=== PATIENT | female | born 1985 | race Caucasian/White ===

== ENCOUNTER 2020-11-18 08:09 | Emergency (ER) | payer OTHER, SELFPAY ==
[2020-11-18 08:14] VITALS: BP 120/67; PULSE 87; RESP 20; TEMP 36.9; O2SAT 100
--- NOTE | 2020-11-18 08:40 | ED.GENADULT ---
HPI - General Adult General Chief complaint: Eye Problems Stated complaint: scratched eye with mascara brush Source: patient Mode of arrival: ambulatory Limitations: no limitations History of Present Illness HPI narrative: Patient presents for evaluation of right eye irritation since yesterday. She indicates that she scratched her eye with a mascara brush unintentionally. Yesterday she had some mild irritation but woke from sleep this morning with worsening symptoms. She reports some blurred vision, sensation of sand in the eye , redness, and tearing. Denies any black spots, diplopia, or halos. Denies any purulent discharge from the right eye. History of Lasik surgery in the past. She has glasses at home but does not typically wear them. No additional complaints or concerns. Related Data Home Medications Medication Instructions Recorded Confirmed alprazolam [Xanax] 0.25 mg PO BID PRN 11/18/20 11/18/20 famotidine 40 mg PO DAILY 11/18/20 11/18/20 montelukast 10 mg PO DAILY 11/18/20 11/18/20 Allergies Allergy/AdvReac Type Severity Reaction Status Date / Time neomycin Allergy Intermediate redness, Verified 11/18/20 08:33 swelling and pain codeine Allergy Unknown N/V SEVERE Verified 11/18/20 08:33 Review of Systems Review of Systems: CONSTITUTIONAL: Denies fever, chills, or sweats. EYES: Reports right eye irritation, tearing, redness, blurred vision. ENT: Denies rhinorrhea, congestion, sore throat, or otalgia. CARDIOVASCULAR: Denies chest pain, palpitations, or edema. RESPIRATORY: Denies cough or dyspnea. GASTROINTESTINAL: Denies abdominal pain, nausea, vomiting, or diarrhea. GENITOURINARY: Denies dysuria or hematuria. SKIN: Denies rash or itching. MUSCULOSKELETAL: Denies back pain, joint pain, or myalgia. NEUROLOGIC: Denies headache, numbness, dizziness, or weakness. PSYCHIATRIC: Denies anxiety or depression. 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 HEAD: Normocephalic, atraumatic. EYES: PERRLA and EOMI. Right conjunctival injection with associated tearing. There is a small area of dye uptake to the right eye overlying the pupil when evaluated with Liang lamp and fluorescein staining ENT: Nares clear, no rhinorrhea or epistaxis. Mucous membranes moist. Oropharynx without tonsillar hypertrophy exudate or other lesions. Bilateral TMs pearly rasmussen nonbulging NECK: Supple. No adenopathy or masses. No carotid bruits or JVD CHEST: Clear to auscultation. No respiratory distress. No wheezes rales or rhonchi HEART: Regular rate and rhythm. No murmur heard. Normal peripheral pulses. ABDOMEN: Soft, nontender, nondistended, normal active bowel sounds. EXTREMITIES: Normal range of motion. No edema. SKIN: Warm, dry, no rash. NEURO: No focal deficits. Alert and oriented x3. PSYCH: Normal mood and affect. Course Course Emergency Course: This is a 35-year-old female who presented with right eye irritation after she scratched her eye with a mascara brush yesterday. Physical exam reveals small corneal abrasion. We will discharge her with a prescription for eryth
--- NOTE | 2020-11-18 09:21 | PC.NURSE ---
noted pt states certain no allergy to neomycin as previously recorded
== END 2020-11-18 08:55 | disposition home or self-care (01) ==
PROVIDERS: Emergency Provider Nurse Practitioner; PCP Physician Assistant
DX: S05.01XA Injury of conjunctiva and corneal abrasion without foreign body, right eye, initial encounter (principal); W22.8XXA Striking against or struck by other objects, initial encounter
CPT/HCPCS: 99203; A9270; G0463

== ENCOUNTER 2021-11-04 08:05 | Outpatient (CLI) | payer OTHER, SELFPAY ==
[2021-11-04 08:22] LABS: Basophils Absolute Auto 0.04 K/mm3 (0.00-0.10); Basophils Percent Auto 0.6 % (0.0-1.0); Eosinophils Absolute Auto 0.21 K/mm3 (0.02-0.50); Eosinophils Percent Auto 3.2 % (1.0-6.0); Hematocrit 38.9 % (35.0-49.0); Hemoglobin 12.7 g/dL (12.0-15.0); Immature Granulocyte Absolute 0.02 K/mm3 (0.00-0.00); Immature Granulocyte Percent A 0.3 % (0.0-0.0); Lymphocytes Absolute Auto 2.41 K/mm3 (1.10-4.50); Lymphocytes Percent Auto 37.2 % (18.0-42.0); Mean Corpuscular HGB Conc 32.6 g/dL (32.0-36.0); Mean Corpuscular Hemoglobin 28.2 pg (27.0-31.0); Mean Corpuscular Volume 86.4 fL (78.0-102.0); Mean Platelet Volume 11.3 fl (9.2-11.8); Monocytes Absolute Auto 0.42 K/mm3 (0.10-0.90); Monocytes Percent Auto 6.5 % (2.0-11.0); Neutrophils Absolute Auto 3.4 K/mm3 (1.7-7.2); Neutrophils Percent Auto 52.2 % (50.0-70.0); Platelet Count Result 283 K/mm3 (150-420); Red Cell Distribution Width 12.7 % (11.6-14.4); White Blood Count 6.5 K/mm3 (4.8-10.8)
[2021-11-04 08:23] LABS: Add Urine Microscopic? NO; Appearance Urine Clear (Clear); Bilirubin Urine Negative (Negative); Blood Urine Negative (Negative); Color Urine Light Yellow (Yellow); Glucose Urine UA Negative (Negative); Ketones Urine Negative (Negative); Leukocyte Esterase Ur Negative LEU/UL (Negative); Nitrate Urine Negative (Negative); Protein Urine Negative (Negative); Specific Grav Ur >= 1.030 (1.010-1.020); Urobilinogen Urine 0.2 mg/dL (0.2-1.0); pH Urine 5.5 (5.0-8.0)
[2021-11-04 08:40] LABS: Hemoglobin A1C 5.6 % (<5.7)
[2021-11-04 08:56] LABS: Alanine Aminotransferase 20 U/L (14-59); Alkaline Phosphatase 42 U/L (46-116); Anion Gap 9 mmol/L (8-16); Aspartate Amino Transferase 17 U/L (15-37); Bilirubin,Total 0.5 mg/dL (0.00-1.00); Blood Urea Nitrogen 11 mg/dL (7-18); Calcium 8.9 mg/dL (8.5-10.1); Carbon Dioxide 25 mmol/L (21-32); Chloride 103 mmol/L (98-108); Cholesterol 177 mg/dL (0-200); Estimated Glomerular Filt Rate > 60; Free T4 Free Thyroxine 0.92 ng/dL (0.76-1.46); Glucose 97 mg/dL (70-99); HDL Direct 67 mg/dL (40-60); LDL Cholesterol Calculated 99 mg/dL (<130); Osmolality Calculated 283 mOsm/kg (285-295); Potassium 4.1 mmol/L (3.5-5.1); Sodium 137 mmol/L (136-145); Thyroid Stimulating Hormone 1.52 uIU/mL (0.36-3.74); Total Protein 7.4 g/dL (6.4-8.2); Triglycerides 55 mg/dL (0-150)
== END 2021-11-04 08:06 | disposition home or self-care (01) ==
PROVIDERS: PCP Physician Assistant; Visit Provider Physician Assistant
DX: Z13.220 Encounter for screening for lipoid disorders (principal); Z13.1 Encounter for screening for diabetes mellitus; Z79.899 Other long term (current) drug therapy
CPT/HCPCS: 36415; 80053; 80061; 81003; 83036; 84439; 84443; 85025